=== PATIENT | female | born 1985 | race American Indian/Alaskan Native ===

== ENCOUNTER 2019-10-08 05:57 | Observation (INO) | payer OTHER ==
[2019-10-02 13:32] LABS: Basophils % (Auto) 0.9 % (0.0-1.8); Eosinophils # (Auto) 0.1 K/mm3 (0.0-0.4); Eosinophils % (Auto) 2.9 % (0.0-4.3); Hematocrit 38.6 % (30.3-42.9); Hemoglobin 12.6 gm/dl (10.1-14.3); Lymphocytes # (Auto) 1.5 K/mm3 (1.2-5.4); Lymphocytes % (Auto) 41.3 % (13.4-35.0); Mean Corpuscular HGB Conc 33 % (30-34); Mean Corpuscular Volume 89 fl (79-97); Monocytes # (Auto) 0.2 K/mm3 (0.0-0.8); Monocytes % (Auto) 5.8 % (0.0-7.3); Platelet Count 226 K/mm3 (140-440); Red Blood Count 4.35 M/mm3 (3.65-5.03); Red Cell Distribution Width 15.8 % (13.2-15.2)
[2019-10-02 14:00] LABS: BUN/Creatinine Ratio 12; Blood Urea Nitrogen 6 mg/dL (7-17); Calcium 8.7 mg/dL (8.4-10.2); Hemolysis Index 4
--- NOTE | 2019-10-02 17:41 | Anesthesia Consultation ---
Anesthesia Consult and Med Hx Date of service: 10/02/19 - Airway Anesthetic Teeth Evaluation: Good Mallampati Class: Class II Intubation Access Assessment: Good - Pulmonary Exam CTA: Yes - Cardiac Exam Cardiac Exam: RRR - Pre-Operative Health Status ASA Pre-Surgery Classification: ASA2 Proposed Anesthetic Plan: General Nerve Block: TAP Block - Endocrine Hx Renal Disease: No - Additional Comments Anesthesia Medical History Comments: Hx od anemia , migraines for Ga and TAP block
--- NOTE | 2019-10-07 19:50 | History and Physical Report ---
History of Present Illness Date of examination: 10/02/19 History of present illness: Patient has been reassessed/reevaluated. H&P has been reviewed. No interval changes. This is a 34 years old female who presents with uterine fibroids. She complains of abdominal pain, pelvic pain, pelvic pressure, menorrhagia and intermenstrual bleeding, but denies abdominal pressure. Prior to today's visit the patient has had US of pelvis and sonohysterogram. She complains of irregular menses and heavy bleeding, but denies mid-cycle spotting, lack of menses, dysmenorrhea, clotting, history of ovarian cysts, history of thyroid disease, history of fibroids, history of PCOS, history of bleeding disorder, lightheadedness, fatigue and cramping. Patient without relief from her symptoms with Mirena. Conservative therapies have failed. Patient desires definitive treatment Vital Signs: Patient Profile: 34 Years Old Female LMP: 08/2019 Height: 61 inches (154.94 cm) Weight: 128 pounds BMI: 24.18 Menstrual History: LMP (date): 08/2019 Current Method of Contraception: IUD Date of Last Pap Smear: 03/05/2019 Past History : 3 Term Births: 1 Premature Births: 0 Living Children: 1 Para: 1 Mult. Births: 0 Prev : 0 Aborta: 2 Elect. Ab: 1 Spont. Ab: 1 Ectopics: 0 [employer]BRID [employer] History Operations: D&C:EAB Abnormal PAP: positive Infection History HIV Risk Eval: no Personal hx. of genital herpes: no Hx of STD: chlamydia Other: GC Active Medications (reviewed today): MIRENA (52 MG) 20 MCG/24HR INTRAUTERINE INTRAUTERINE DEVICE (LEVONORGESTREL) Current Allergies (reviewed today): * DOXYCYCLINE (Critical) Past Medical History: Anemia Fibroids Past Surgical History: Reviewed history from 03/05/2019 and no changes required: D&C:EAB Social History: Reviewed history from 03/05/2019 and no changes required: Marital Status: Single Children: 1 Occupation: Customer Smoking History: Patient has never smoked. Risk Factors: Smoked Tobacco Use: Never smoker Smokeless Tobacco Use: Never Passive smoke exposure: no Drug use: no HIV high-risk behavior: no Caffeine use: 2 drinks per day Alcohol use: yes Type: occ Exercise: no Seatbelt use: 100 % PAP Smear History: Date of Last PAP Smear: 03/05/2019 Review of Systems General Complains of fatigue. Denies fever, chills, sweats, anorexia, weakness, malaise, weight loss and sleep disorder. Complains of menorrhagia, abnormal vaginal bleeding, pelvic pain and painful periods. Denies vaginal discharge, incontinence, dysuria, hematuria, urinary frequency, amenorrhea, genital sores, decreased libido, painful sex, urinary urgency, hot flashes, vaginal dryness, vaginal itching and vaginal odor. CV Denies chest pains, palpitations, syncope, dyspnea on exertion, orthopnea, PND and peripheral edema. Resp Denies cough, dyspnea at rest, excessive sputum, hemoptysis, wheezing and pleurisy. GI Denies nausea, vomiting, diarrhea, constipation, change in bowel habits, abdominal pain, melena, hematochezia, jaundice, gas/bloating, indigestion/heartburn, dysphagia and odynophagia. Breast Denies left breast lump, right breast lump, nipple discharge, bloody discharge from nipple, breast pain, abnormal mammogram and breast enlargement. Psych Denies depression, anxiety, irritability and mood swings. [Labs In-House] Past History Past Medical History: other (SEE HPI) Past Surgical History: Other (SEE HPI) Social history: other (SEE HPI) Family history: other (SEE HPI) Medications and Allergies Allergies Allergy/AdvReac Type Severity Reaction Status Date / Time doxycycline Allergy Vomiting Verified 10/03/19 16:41 Home Medications Medication Instructions Recorded Confirmed Last Taken Type No Known Home Medications [No 10/03/19 10/03/19 Unknown History Reported Home Medications] Active Meds: Active Medications Celecoxib (Celebrex) 200 mg PO PREOP NR Stop: 10/08/19 23:59 Fentanyl (Sublimaze) 100 mcg IV ONCE NR Stop: 10/08/19 23:59 Gabapentin (Gabapentin) 300 mg PO PREOP NR Stop: 10/08/19 23:59 Cefazolin Sodium (Ancef/Sterile Water 2 Gm/20 Ml) 2 gm in 20 mls @ 80 mls/hr IV PREOP NR; Protocol Stop: 10/08/19 23:59 Lactated Ringer's (Lactated Ringers) 1,000 mls @ 100 mls/hr IV DIRECT MIKHAIL Midazolam HCl (Versed) 2 mg IV PREOP NR Stop: 10/08/19 23:59 Review of Systems Constitutional: other (SEE HPI) Exam - Physical Exam Narrative exam: HEENT: normocephalic, no lesions or deformities Skin no significant abnormal lesions or rashes Chest: respiratory effort normal, clear to auscultation Abdomen: normal bowel sounds, soft, nontender, no HSM Neuro: no gross anomalities Extremities: no clubbing, cyanosis, or edema [employer] Exams Vulva/Vagina: No lesions, normal BUS, normal rugae Cervix: No lesions; no cervical motion tenderness IUD string seen Uterus: enlarged uterus 8 - 10 weeks size Adnexae: no masses or tenderness Rectovaginal: exam defered - Constitutional Vitals: Temp Pulse Resp BP Pulse Ox 98.6 F 68 18 99/49 99 10/02/19 13:00 10/02/19 13:00 10/02/19 13:00 10/02/19 13:00 10/02/19 13:00 Results - Labs CBC & Chem 7: 10/02/19 13:15 10/02/19 13:15 Assessment and Plan - Patient Problems (1) Intramural leiomyoma of uterus Current Visit: No Status: Acute Plan to address problem: Diagnosis explained to patient . Questions answered. Discussed with patient various medical, surgical and radiological therapies common for treatment including myomectomy hysterectomy and uterine artery embolization Patient de sires definitive treatment Patient desires hysterectomy Discussed risks and benefits of laparotomy, laparoscopy, vaginal and robotic assisted approaches for hysterectomies Patient desires robotic assisted total hysterectomy. Patient desires robotic assisted total hysterectomy. Consent reviewed and signed . The risks and alternatives for this surgery were reviewed with the patient. Discuss the risks of the surgery including infection, bleeding possibly heavy enough to require a blood transfusion, possible damage to bowel, bladder or ureter. Patient understand that this surgery with make her sterile.Patient understands if her ovaries are removed she will become menopausal. Also if unable to complete robitcally a laparotomy may be required. Patient advised the small risks of spreading of malignancy if morcellator is used during the surgery patient understands and approve of use if necessary (2) Menorrhagia Current Visit: No Status: Acute Qualifiers: Menorrahagia type: with regular cycle Qualified Code(s): N92.0 - Excessive and frequent menstruation with regular cycle Plan to address problem: Probably secondary to # 1 (3) Anemia Current Visit: No Status: Acute Qualifiers: Iron deficiency anemia type: chronic blood loss Plan to address problem: Probably secondary to # 2
[~2019-10-08 05:57] MED LIST: BACTERIOSTATIC SODIUM CHLORIDE 0.9% 30 ML VIAL INFILTRATI ONE
[2019-10-08] MEDS ORDERED: fentaNYL 100 MCG/2 ML INJ IV NR (06:00)
[2019-10-08] MEDS ORDERED: GABAPENTIN 300 MG CAP PO NR (06:00)
[2019-10-08] MEDS ORDERED: CELECOXIB 200 MG CAP PO NR (06:00)
[2019-10-08] MEDS ORDERED: LACTATED RINGERS 1,000 ML IV SCH (07:00)
[2019-10-08] MEDS ORDERED: MIDAZOLAM 2 MG/2 ML INJ IV NR (07:00)
[2019-10-08] MEDS ORDERED: ceFAZolin/Water 2 GM/20 ML 2 GM/20 ML SYRINGE IV NR ×2 (07:00→12:00)
[2019-10-08] MEDS ORDERED: BUPIVACAINE-EPINEPHRINE/PF 0.5%-1:200,000 (30 ML) VIAL INFILTRATI ONE (07:09)
[2019-10-08] MEDS ORDERED: LIDOCAINE (1%) 10 MG/1 ML VIAL 20 ML MDV ONE (07:10)
[2019-10-08] MEDS ORDERED: NEOMY 40 MG/POLYMYXIN B 200,000 UNITS/ML (GU) AMPULE IR ONE (07:26)
[2019-10-08] MEDS ORDERED: HYDROmorphone 1 MG/1 ML INJ IV PRN ×2 (07:34→15:27)
[2019-10-08] MEDS ORDERED: ONDANSETRON 4 MG/2 ML INJ IV PRN (07:34)
--- NOTE | 2019-10-08 07:34 | Anesthesia Day of Surgery ---
Anesthesia Day of Surgery - Day of Surgery Patient Examined: Yes Patient H&P Reviewed: Yes Patient is NPO: Yes
[2019-10-08] MEDS ORDERED: PROPOFOL 200 MG/20 ML VIAL IV ONE (07:40)
[2019-10-08] MEDS ORDERED: dexAMETHasone 20 MG/5 ML VIAL ONE (07:40)
[2019-10-08] MEDS ORDERED: NEOSTIGMINE 10MG/10 ML INJ MDV ONE (07:40)
[2019-10-08] MEDS ORDERED: PHENYLEPHRINE/NS 1,000 MCG/10 ML SYRINGE (OR USE) IV ONE (07:40)
[2019-10-08] MEDS ORDERED: SUCCINYLCHOLINE CHLORIDE 200 MG/10 ML INJ MDV ONE (07:40)
[2019-10-08] MEDS ORDERED: ROCURONIUM 50 MG/5 ML INJ IV ONE (07:40)
[2019-10-08] MEDS ORDERED: LIDOCAINE MPF (2%) 20 MG/1 ML VIAL 5 ML ONE (07:40)
[2019-10-08] MEDS ORDERED: fentaNYL 250 MCG/5 ML INJ ONE (07:40)
[2019-10-08] MEDS ORDERED: GLYCOPYRROLATE 0.4 MG/2 ML INJ ONE ×2 (07:40)
--- NOTE | 2019-10-08 10:41 | Operative Report ---
Operative Report Operative Report: Date of procedure: 10/08/2019 Pre-operative diagnosis: Symptomatic leiomyoma with menorrhalgia and failed con servative treatment Post-operative diagnosis: Same plus pelvic adhesive disease Procedure name(s):Robotic Assisted Total Hysterectomy with bilateral salpingectomy and lysis of adhesions Surgeon: Guillaume Castillo MD Rn Shift Mgr: Yocasta Faye, certified pathology assistant Anesthesia: General EBL: 75 mL Complications: None Findings: Patient with uterus approximately 10 weeks in size with adhesions the right ovary posterior uterus adhesion of the colon cul-de-sac and adhesions descending colon to the left sidewall Specimen(s): Uterus with cervix and bilateral fallopian tubes Procedure: Patient was brought to the operating room where general anesthesia was induced without difficulty. Patient was placed in the dorsal lithotomy position. Prepped and draped in the usual sterile manner for robotic procedure. Rust catheter was placed without difficulty. Speculum was placed in the vagina. A medium V-Care Uterine manipulator was placed without difficulty. Attention was now switched to the patient's abdomen. A vertical supra-umbilicus incision was made with a scalpel. A 10-12 trocar was placed in this incision under direct visualization. Intra-abdominal placement was verified with no evidence of internal organ damage. The patient pelvic findings were noted as above. It was determined that the patient was a candidate for robotic procedure. On both sides the umbilical incision at about 8 cm, incisions were made for robotic trocar. Each robotic trocar was placed under direct visualization with no evidence of internal organ damage. One plastic surgery assistant port was then placed. A 5mm trocar was placed 2 fingerbreadths above the right iliac crest. Now with 5 mm camera visualization from the catalog library assistant port, the Bassam Araiza fascial closure device was placed through the midline trocar site. At this time the patient was placed in extreme Trendelenburg. The da Harry robot was then docked on the patient's left side. The trocars connected to the robot appropriately. At this time I took my place under the robotic operating mederos. Starting on the patient's right side the mesosalpinx of the tube were cauterized for mild distal to proximal tube. Bipolar cautery was placed across the proximal portion of the fallopian tube. This area was cauterized and cut the fallopian tube was then removed from the catalog library assistant port. Utero-ovarian complex was cauterized and cut. The adhesions between the posterior uterus and right ovary then taken down sharply and bluntly. The broad ligament was then opened. The bladder flap was formed anteriorly. The posterior broad ligament was then excised. The uterine vessels were skeletonized. The ureter was clearly seen out of the operative field. The bladder was pushed away from the anterior uterus. Attention was then switched to the patient's left side. The same procedure was repeated on the left side with performing lysis of adhesions of the colon from the sidewall. The salpingectomy was done in similar fashion then followed by isolating the uterine vessels cauterized and cutting and completing the bladder flap from the left side. At this time the uterus was appearing very cyanotic. After inspecting th e bladder flap insured no evidence of bladder injury, the colpotomy was then started. Incision started at 6:00 until the V-Care could be seen. This incision was extended from 6:00 to 9:00. Then from 6:00 to 3:00. Then from 9:00 to 12:00. This incision was extended from 3:00 to 12:00. At this time colpotomy was complete with no evidence of adjacent organ damage. The plastic surgery assistant remove the uterus from through the colpotomy site. The vaginal cuff was irrigated and cauterized and found to be hemostatic. The cuff was closed with roboticly using 0 V- Lock suture. This closure was hemostatic after irrigation and Bovie. All pedicles were inspected and found to be hemostatic. The ureters were identified bilaterally and found to be functioning normal. The patient had clear urine in the Rust catheter with no evidence of mixture with blood. Farzaneh was placed on the cuff and pedicles for postoperative hemostasis . All instruments were then removed. The large trocar sites were closed in layers and 4-0 Monocryl. The smaller incisions were closed subcuticularly with 4-0 Monocryl. The patient tolerated procedure well. She was awakened in the operating room and accompanied to the recovery room in good condition.
[2019-10-08] MEDS ORDERED: MAGNESIUM HYDROXIDE (MOM) ORAL LIQD UDC PO PRN (11:01)
[2019-10-08] MEDS ORDERED: D5W/LACTATED RINGERS 1,000 ML IV SCH (11:01)
[2019-10-08] MEDS: KETOROLAC 30 MG/1 ML INJ IV SCH ×2 (11:10→18:05)
[2019-10-08] MEDS: ceFAZolin/NS 1 GM/50 ML 1 GM/50 ML BAG IV SCH ×2 (12:53→22:15)
[2019-10-08] MEDS: HYDROcodone/ACETAMINOPHEN 5-325 MG TAB PO PRN (13:46)
--- NOTE | 2019-10-08 13:46 | Post Anesthesia Evaluation ---
- Post Anesthesia Evaluation Patient Participated: Yes Airway Patent: Yes Stable Respiratory Function: Yes Nausea/Vomiting: No Temp > 96.8F: Yes Pain Manageable: Yes Adequeate Hydration: Yes Anesthesia Complications: No Block Receding Appropriately: Not Applicable Patient on Ventilator: No
--- NOTE | 2019-10-08 16:20 | Event Note ---
Date: 10/08/19 Received a call from the nurse with patient complaining of abdominal chest pain. Patient without fever nausea vomiting. Anesthesia notified for pain control. Patient had a O2 sat 100%. Ordered EKG result normal sinus rhythm. Also patient had a portable chest x-ray which my preliminary interpretation appeared to be normal except for scoliosis noted. Official reading has not been done yet. Patient vital signs stable. Exam patient is complaining of some upper right chest pain. Abdomen : Soft only slightly distended as suspected Incisions intact no rebound Extremities nontender no edema. A/ Postop pain/ Discuss operative findings with patient and her family/Questions answered./Patient without fever/Good urine output/CBC pending P/ We will continue routine postoperative care./Anesthesia to evaluate/obtain lab results/serial exams
--- NOTE | 2019-10-08 16:30 | XRay Report ---
CHEST 1 VIEW INDICATION / CLINICAL INFORMATION: Chest pain. COMPARISON: None available. FINDINGS: SUPPORT DEVICES: None. HEART / MEDIASTINUM: No significant abnormality. LUNGS / PLEURA: No significant pulmonary or pleural abnormality.. No pneumothorax. ADDITIONAL FINDINGS: Scoliotic curvature is noted in the spine IMPRESSION: 1. No acute findings. Signer Name: Mark Varela MD Signed: 10/08/2019 4:25 PM Workstation Name: [id number]
--- NOTE | 2019-10-08 17:07 | Progress Note ---
Subjective Date of service: 10/08/19 Interval history: Patient POD 0 s/p robot hysterectomy. Received TAP block preoperatively. Now on the floor complaining of poorly controlled abdominal pain which has only modestly improved with toradol, norco, and IV dilaudid. Also complained of chest pain. VS at that time were acceptable, EKG NSR, CXR normal. At time of my exam, patient awake and alert. Chest pain had resolved. Abdomen soft and appropriately tender. Denies vaginal bleeding. Will order one time dose of dilaudid 0.5mg IV now and continue q6hr prn along with prn norco PO and scheduled toradol IV. Will hold off on scheduled tylenol at this time given norco administration. Will add gabapentin 300mg TID. Patient cautioned of possible sedating side effects and advised that dose/frequency can be decreased as necessary. Sabrina Figueroa MD Anesthesiologist Objective - Constitutional Vitals: Vital Signs - 12hr 10/08/19 10/08/19 10/08/19 06:20 07:21 07:26 Temperature 98.2 F Pulse Rate 63 73 75 Respiratory 16 19 22 Rate Blood Pressure 97/65 98/35 96/44 Blood Pressure [Left] O2 Sat by Pulse 99 100 100 Oximetry 10/08/19 10/08/19 10/08/19 07:31 07:35 07:40 Temperature Pulse Rate 90 87 93 H Respiratory 22 11 L 15 Rate Blood Pressure 98/47 98/44 100/45 Blood Pressure [Left] O2 Sat by Pulse 100 100 100 Oximetry 10/08/19 10/08/19 10/08/19 10:06 10:11 10:16 Temperature 97.6 F Pulse Rate 63 62 64 Respiratory 17 18 17 Rate Blood Pressure 148/85 119/73 114/66 Blood Pressure [Left] O2 Sat by Pulse 100 100 100 Oximetry 10/08/19 10/08/19 10/08/19 10:21 10:36 11:41 Temperature 98.1 F 97.8 F Pulse Rate 60 62 87 Respiratory 19 20 18 Rate Blood Pressure 122/70 118/68 Blood Pressure 112/61 [Left] O2 Sat by Pulse 100 100 100 Oximetry 10/08/19 10/08/19 10/08/19 15:30 15:50 16:10 Temperature Pulse Rate 62 62 Respiratory 18 20 18 Rate Blood Pressure Blood Pressure 99/54 98/43 [Left] O2 Sat by Pulse 100 100 Oximetry - Labs CBC & Chem 7: 10/02/19 13:15 10/02/19 13:15
[2019-10-08] MEDS ORDERED: GABAPENTIN 500 MG/10 ML ORAL LIQD PO SCH (17:08)
[2019-10-08] MEDS ORDERED: ALUM-MAG HYDROXIDE-SIMETHICONE 200-200-20MG/5ML ORAL LIQD 30 ML PO ONE (17:19)
[2019-10-08] MEDS: HYDROmorphone 2 MG/1 ML INJ IV ONE (17:22)
[2019-10-08 20:33] LABS: Hemoglobin 11.6 gm/dl (10.1-14.3); Mean Corpuscular HGB Conc 32 % (30-34); Mean Corpuscular Volume 89 fl (79-97); Platelet Count 230 K/mm3 (140-440); Red Blood Count 4.06 M/mm3 (3.65-5.03); Red Cell Distribution Width 15.3 % (13.2-15.2)
[2019-10-08 20:51] LABS: BUN/Creatinine Ratio 10; Blood Urea Nitrogen 6 mg/dL (7-17); Calcium 8.3 mg/dL (8.4-10.2); Hemolysis Index 12
[2019-10-08 21:16] LABS: Basophils % (Manual) 0 % (0.0-1.8); Eosinophils % (Manual) 0 % (0.0-4.3); RBC Morphology Normal; Total Cells Counted 100
[2019-10-08] MEDS: DOCUSATE SODIUM 100 MG CAP PO SCH (22:15)
[2019-10-09] MEDS: KETOROLAC 30 MG/1 ML INJ IV SCH (04:40)
[2019-10-09] MEDS ORDERED: IBUPROFEN 800 MG TAB PO PRN (06:00)
[2019-10-09 08:59] LABS: Hematocrit 32.5 % (30.3-42.9); Hemoglobin 10.6 gm/dl (10.1-14.3)
--- NOTE | 2019-10-09 09:12 | Short Stay Summary ---
Short Stay Documentation Date of service: 10/09/19 - History Past Medical History: other (SEE HPI) Past Surgical History: Other (SEE HPI) Social history: other (SEE HPI) - Allergies and Medications Current Medications: Allergies doxycycline Allergy (Verified 10/03/19 16:41) Vomiting Home Medications Medication Instructions Recorded Confirmed Last Taken Type Ibuprofen [Motrin 800 MG tab] 800 mg PO Q6H PRN #30 tablet 10/09/19 Unknown Rx oxyCODONE /ACETAMINOPHEN [Percocet 1 - 2 tab PO Q4H PRN #20 tablet 10/09/19 Unknown Rx 5/325 mg] Active Medications Acetaminophen/Hydrocodone Bitart (Tillar 5/325) 2 each PO Q4H PRN PRN Reason: Pain, Moderate (4-6) Last Admin: 10/08/19 13:46 Dose: 2 each Documented by: Docusate Sodium (Colace) 100 mg PO BID MIKHAIL Last Admin: 10/08/19 22:15 Dose: 100 mg Documented by: Hydromorphone HCl (Dilaudid) 0.5 mg IV Q6H PRN PRN Reason: Pain , Severe (7-10) Stop: 10/09/19 15:26 Last Admin: 10/08/19 15:50 Dose: 0.5 mg Documented by: Dextrose/Lactated Ringer's (D5lr) 1,000 mls @ 125 mls/hr IV DIRECT MIKHAIL Ibuprofen (Ibuprofen) 800 mg PO Q6H PRN PRN Reason: Pain, Mild (1-3) Magnesium Hydroxide (Milk Of Magnesia) 30 ml PO Q4H PRN PRN Reason: Constipation - Physical exam General appearance: no acute distress HEENT: Atraumatic Lungs: Normal air movement Breasts: deferred Heart: Regular rate Gastrointestinal: hypoactive bowel sounds, tenderness (c/w post op), distended (Mildly c/w post op) Rectal Exam: deferred Extremities: no ischemia Neurological: Normal gait - Brief post op/procedure progress note Date of procedure: 10/08/19 (See op note) - Hospital course Hospital course: Patient was admitted and underwent above procedure without complications. Her post operative course was benign she was afebrile throughout. Patient did complain of postoperative chest and abdominal pain day of surgery workup included a normal EKG normal chest x-ray patient had a oxygen saturation 100%. Patient pain improve with observation and treatment with antacids. Patient postoperative day 1 hematocrit was in an acceptable range. Patient had no orthostatic symptoms. Patient was tolerating regular diet and voiding without difficulty at time of discharge. Patient incision was healing well without evidence of infection. - Disposition Condition at discharge: Good Disposition: DC-01 TO HOME OR SELFCARE - Discharge Diagnoses (1) Intramural leiomyoma of uterus Status: Acute (2) Menorrhagia Status: Acute Qualifiers: Menorrahagia type: with regular cycle Qualified Code(s): N92.0 - Excessive and frequent menstruation with regular cycle (3) Anemia Status: Acute Qualifiers: Iron deficiency anemia type: chronic blood loss (4) Scoliosis Status: Chronic Qualifiers: Scoliosis type: unspecified scoliosis Spinal region: unspecified Qualified Code(s): M41.9 - Scoliosis, unspecified Comment: Patient did have some complaints of back pain patient has severe scoliosis declined treatment Short Stay Discharge Plan Activity: advance as tolerated Diet: regular Wound: open to air Additional Instructions: [] Smoking cessation referral if applicable(refer to patient education folder for contact #) Call your doctor immediately for: * Fever > 100.5 * Heavy vaginal bleeding ( >1 pad per hour) * Severe persistent headache * Shortness of breath * Reddened, hot, painful area to leg or breast * Drainage or odor from incision. * Keep incision clean and dry at all times and follow doctor's instructions regarding bathing/showering Patient instructed no heavy lifting for 4 weeks. No intercourse for 8 weeks. Call office for fever, chills, nausea, vomiting or pain not controlled by pain m edications. Ambulation is encouraged. Patient's call for heavy vaginal bleeding. Patient instructed to keep her scheduled post operative office appointment. Encouraged patient to follow up treatment for scoliosis. Follow up with: PRIMARY CARE, [Primary Care Provider] - 7 Days Forms: [facility] Discharge Summary, Discharge Signature Page Prescriptions: Docusate Sodium [Colace] 100 mg PO BID #30 capsule Ibuprofen [Motrin 800 MG tab] 800 mg PO Q6H PRN #30 tablet PRN Reason: Pain oxyCODONE /ACETAMINOPHEN [Percocet 5/325 mg] 1 - 2 tab PO Q4H PRN #20 tablet PRN Reason: Pain, Moderate
--- NOTE | 2019-10-09 10:50 | Progress Note ---
Subjective Date of service: 10/09/19 Interval history: Pain better controlled overnight. Received at least 1 dose gabapentin however med was discontinued overnight due to concern for hypotension. This morning, she is sitting up in chair, eating solid breakfast without difficulty. Reports right hand numbness which started when she woke up this morning. On exam, [employer] commander strength is 5/5 bilaterally. Dressing at site of previously removed right wrist IV is without evidence of prior infiltration. While gabapentin is not likely to have caused the episode of hypotension overnight, agree with stopping at this point since pain is better controlled and patient likely to be discharged soon. Additional PO pain regimen per primary team. Right hand numbness seems unlikely to be associated with surgical positioning given delayed onset and lack of specific dermatomal distribution. Anesthesia service will sign off at this time. Please call with additional questions or concerns. Sabrina Figueroa MD Anesthesiologist Objective - Constitutional Vitals: Vital Signs - 12hr 10/09/19 10/09/19 10/09/19 00:00 04:15 07:48 Temperature 98 F 98.2 F 98.5 F Pulse Rate 72 91 H 87 Respiratory 16 14 18 Rate Blood Pressure 104/68 84/42 87/42 [Left] - Labs CBC & Chem 7: 10/09/19 05:56 10/08/19 20:00 Labs: Abnormal lab results 10/08/19 10/08/19 Range/Units 20:00 20:00 RDW 15.3 H (13.2-15.2) % Seg Neuts % (Manual) 90.0 H (40.0-70.0) % Lymphocytes % (Manual) 7.0 L (13.4-35.0) % Lymphocytes # (Manual) 0.6 L (1.2-5.4) K/mm3 Carbon Dioxide 20 L (22-30) mmol/L BUN 6 L (7-17) mg/dL Creatinine 0.6 L (0.7-1.2) mg/dL Glucose 134 H (65-100) mg/dL Calcium 8.3 L (8.4-10.2) mg/dL
[2019-10-09] MEDS: HYDROcodone/ACETAMINOPHEN 5-325 MG TAB PO PRN (11:32)
[2019-10-09] MEDS: DOCUSATE SODIUM 100 MG CAP PO SCH (11:33)
[2019-10-09 17:11] VITALS: BP 139/70
== END 2019-10-09 17:00 | disposition home or self-care (01) ==
LOC: OR 05:57 → OB 10:16
PROVIDERS: ADMIT Obstetrics & Gynecology; ATTEND Obstetrics & Gynecology
DX: D25.1 Intramural leiomyoma of uterus (principal); N92.0 Excessive and frequent menstruation with regular cycle; D64.9 Anemia, unspecified; Z98.890 Other specified postprocedural states; Z90.710 Acquired absence of both cervix and uterus
CPT/HCPCS: 36415; 58571; 64450; 71045; 80048; 84703; 85007; 85014; 85018; 85025; 86850; 86900; 86901; 88302; 88307; 88342; 93005; 93010; 96365; 96366; 96375; 96376; G0378; J0330; J0690; J1100; J1170; J1885; J2250; J2370; J2405; J2704; J2710; J3010; J7120; J7121